=== PATIENT | female | born 1940 | race Caucasian/White ===

== ENCOUNTER 2018-10-07 12:19 | Outpatient (CLI) | payer MEDICARE ==
--- NOTE | 2018-10-07 13:33 | MRI ---
MRI CERVICAL SPINE WITHOUT CONTRAST: INDICATION: History of fall with persistent neck pain since injury. COMPARISON: None. FINDINGS: No acute fracture is evident. Craniocervical junction appears within normal limits. Visualized aspe cts of the posterior fossa are unremarkable-appearing. Bone marrow signal intensity appears within n ormal limits. At C2-C3, there is a small central protrusion but without appreciable central canal or neural foramin al narrowing. At C3-4, there is uncovertebral hypertrophy and facet joint degenerative change inducing mild left ne ural foraminal narrowing. At C4-5, there is a broad-based disk bulge with uncovertebral hypertrophy and facet joint degenerativ e change inducing moderate to severe left and moderate right neural foraminal narrowing. There is mi ld central canal narrowing without cord compression. At C5-6, there is a broad-based disk bulge with uncovertebral hypertrophy inducing moderate left neur al foraminal narrowing and mild central canal narrowing. At C6-7, there is a broad-based bulge with facet hypertrophy inducing minimal to mild left neural for aminal narrowing and mild central canal narrowing. At C7-T1, there is an asymmetric to the left broad-based bulge causing mild encroachment of the left neural foramina. IMPRESSION: 1. Multilevel spondylosis with mild central canal narrowing seen at C4-5 through C6-7, 2. Moderate to severe left and moderate right neural foraminal narrowing at C4-5. 3. Moderate left neural foraminal narrowing at C5-6. 4. Mild left neural foraminal narrowing at C6-7 and C3-4. 5. Minimal to mild left neural foraminal narrowing at C7-T1. POS: CET
--- NOTE | 2018-10-07 14:03 | MRI ---
MRI brain without and with gadolinium contrast HISTORY: Memory difficulties. Altered mental status. FINDINGS: There is no evidence of acute intracranial hemorrhage or infarct. Prominent ill-defined are as of increased FLAIR signal throughout the periventricular white matter of each cerebral hemisphere have the appearance of chronic ischemic small vessel disease. Less prominent ischemic banuelos ges within the silvia. There is no mass effect, shift of midline structures, or abnormal areas of contrast enhancement. Ventricles are unremarkable. Visualized paranasal sinuses remain well-aerated. IMPRESSION: Prominent chronic ischemic small vessel disease. No acute intracranial abnormalities are demonstrated.
== END 2018-10-07 12:20 | disposition home or self-care (01) ==
LOC: SCSMRI 12:19
PROVIDERS: ATTEND Nurse Practitioner Acute Care
DX: M54.2 Cervicalgia (principal); R41.3 Other amnesia; I67.82 Cerebral ischemia; M47.812 Spondylosis without myelopathy or radiculopathy, cervical region; M48.02 Spinal stenosis, cervical region; M48.03 Spinal stenosis, cervicothoracic region
CPT/HCPCS: 70553; 72141; 82565